=== PATIENT | male | born 1985 | race Caucasian/White ===

== ENCOUNTER 2021-09-05 13:25 | Emergency (ER) | payer OTHER ==
[~2021-09-05] VITALS: Ht 175.2 cm; Wt 61.2 kg
[2021-09-05] MEDS ORDERED: AUGMENTIN 875-875 MG PO (17:11)
[2021-09-05] MEDS ORDERED: HYDROCODONE-AC1 EAC1 PO (17:11)
== END 2021-09-05 17:50 | disposition home or self-care (01) ==
LOC: ED 13:25
DX: S92.902B Unspecified fracture of left foot, initial encounter for open fracture (principal); Z91.040 Latex allergy status; F17.200 Nicotine dependence, unspecified, uncomplicated; W23.0XXA Caught, crushed, jammed, or pinched between moving objects, initial encounter; Y93.89 Activity, other specified; Y92.89 Other specified places as the place of occurrence of the external cause; Y99.8 Other external cause status